=== PATIENT | female | born 1970 | race Two or more races ===

== ENCOUNTER 2025-02-18 14:00 | Emergency (ER) | payer OTHER ==
[2025-02-18 14:23] VITALS: BP 110/71; PULSE 88; RESP 18; TEMP 98.1; BMI 32.9
[2025-02-18] MEDS ORDERED: ACETAMINOPHEN 500 MG TABLET (FP) ONE (15:13)
[2025-02-18] MEDS: ACETAMINOPHEN 500 MG TABLET (FP) PO ONE (15:16)
[2025-02-18] MEDS ORDERED: METHOCARBAMOL 500 MG TABLET ONE (15:41)
[2025-02-18] MEDS: METHOCARBAMOL 750 MG TABLET PO ONE (16:13)
[2025-02-18 16:38] LABS: ABSOLUTE IMMATURE GRANULOCYTES 0.02 x10^3/uL (0.0-0.031); BASOPHILS # 0.07 x10^3/uL (0.01-0.08); EOSINOPHIL % 1.6 % (0.7-5.8); EOSINOPHILS # 0.12 x10^3/uL (0.04-0.36); MCHC 32.9 g/dl (32.2-35.5); MEAN CELL VOLUME 92.2 fl (79.4-94.8); MEAN PLT VOLUME 11.7 fl (9.4-12.3); MONOCYTE # 0.74 x10^3/uL (0.24-0.86); MONOCYTE % 9.9 % (4.7-12.5); RDW 13.0 % (12.3-16.6)
[2025-02-18 17:48] LABS: CO2 26.0 mmol/L (21-32); GLUCOSE,RANDOM 97.0 mg/dL (74-106)
[2025-02-18 17:51] LABS: CREATININE 0.8 mg/dL (0.55-1.3); SGPT/ALT 34.0 U/L (13-61)
[2025-02-18 17:53] LABS: TOT PROT 6.9 g/dl (6.4-8.2)
[2025-02-18 17:54] LABS: ALK PHOS 74.0 U/L (45-117)
[2025-02-18 18:02] LABS: SGOT/AST 23.0 U/L (15-37)
[2025-02-18 18:13] LABS: HIV INTERPRETATION NEGATIVE (NEGATIVE)
[2025-02-18 18:14] LABS: HCV DIAGNOSTIC IN-HOUSE W/RFLX NON-REACTIVE (NONREACTIVE)
== END 2025-02-18 18:47 | disposition home or self-care (01) ==
LOC: JER 14:00
DX: R51.9 Headache, unspecified (principal); M54.2 Cervicalgia; R07.89 Other chest pain; M54.6 Pain in thoracic spine; H43.399 Other vitreous opacities, unspecified eye
CPT/HCPCS: 36415; 70450-TC; 71046-TC-FY; 80053; 84484; 85025; 85651; 86140; 86803; 87389; 93005; 93010; 99285-25